=== PATIENT | male | born 1980 | race African-American/Black ===

== ENCOUNTER 2021-02-17 05:55 | Emergency (ER) | payer MEDICAID, OTHER ==
[~2021-02-17] VITALS: Ht 185.4 cm; Wt 90.7 kg
[2021-02-17 06:08] VITALS: BP 166/84
--- NOTE | 2021-02-17 06:13 | NUR ---
AMBULATED TO BED 5
--- NOTE | 2021-02-17 06:32 | NUR ---
40 Y/O MALE CAME TO THE ED C/O CHEST PAIN X 14 DAYS. PT STATES THAT HE HAS 4/10 CHEST PAIN THAT RADIATES TO THE BACK. PT ALSO STATES "FEELING FATIGUE, AND SORENESS". PT IS A&OX4; GCS 15. LUNGS CLEAR BL; HR EVEN AND REGULAR; VSS; PATIENT POSITIONED FOR COMFORT; HOB ELEVATED; BEDRAILS UP X2; BED DOWN. ER MD MADE AWARE OF PT STATUS. NKA PMH: DENIES
[2021-02-17] MEDS ORDERED: KETO10TA2 PO (06:39)
[2021-02-17] MEDS ORDERED: CYCL-711 PO (06:39)
[2021-02-17] MEDS ORDERED: KETOROLAC 30 MG/ML VIAL IM ONE (06:40)
[2021-02-17 07:00] VITALS: BP 166/84
--- NOTE | 2021-02-17 07:01 | NUR ---
Patient discharged with v/s stable. Written and verbal after care instructions given and explained. Patient alert, oriented and verbalized understanding of instructions. Ambulatory with steady gait. All questions addressed prior to discharge. ID band removed. Patient advised to follow up with PMD. Rx of FLXERIL AND KETOROLCA TROMETHAMINE given. Patient educated on indication of medication including possible reaction and side effects. Opportunity to ask questions provided and answered.
== END 2021-02-17 07:01 | disposition home or self-care (01) ==
LOC: MED 05:55
DX: M54.5 Low back pain (principal); R07.9 Chest pain, unspecified
CPT/HCPCS: 96372; 99283; J1885

== ENCOUNTER 2021-03-03 01:56 | Emergency (ER) | payer MEDICAID ==
[~2021-03-03] VITALS: Ht 185.4 cm; Wt 90.7 kg
[~2021-03-03 01:56] MED LIST: CYCL-711 PO; KETO10TA2 PO
[2021-03-03 02:05] VITALS: BP 144/91
--- NOTE | 2021-03-03 02:05 | NUR ---
TO BED AMBULATORY
--- NOTE | 2021-03-03 02:15 | NUR ---
PATIENT PRESENTS TO ED WITH BACK PAIN. HE RATES IT A 6/10 OF NOW. PT. IS A SMOKER AND STATES THAT HE "SMOKES TOO MUCH." SKIN IS PINK/WARM/DRY; AAOX4 WITH EVEN AND STEADY GAIT; HR EVEN AND REGULAR; PT DENIES ANY FEVER, CP, SOB, OR COUGH AT THIS TIME;VSS; PATIENT POSITIONED FOR COMFORT; HOB ELEVATED; BEDRAILS UP X2; BED DOWN. ER MD MADE AWARE OF PT STATUS. PMH: NONE ALLERGIES: NKA
[2021-03-03] MEDS ORDERED: KETOROLAC 30 MG/ML VIAL IM ONE (02:20)
[2021-03-03] MEDS ORDERED: CYCLOBENZAPRINE 10 MG TAB PO ONE (02:20)
[2021-03-03] MEDS ORDERED: DICL1GEL19 TP (02:36)
[2021-03-03] MEDS ORDERED: IBUP-2213 PO (02:36)
[2021-03-03] MEDS ORDERED: CYCL-711 PO (02:36)
[2021-03-03 03:00] VITALS: BP 144/91
--- NOTE | 2021-03-03 03:00 | NUR ---
Patient discharged with v/s stable. Written and verbal after care instructions given and explained. Patient alert, oriented and verbalized understanding of instructions. Ambulatory with steady gait. All questions addressed prior to discharge. ID band removed. Patient advised to follow up with PMD. Rx of FLEXERIL, VOLTAREN, IBUPROFEN given. Patient educated on indication of medication including possible reaction and side effects. Opportunity to ask questions provided and answered.
== END 2021-03-03 03:00 | disposition home or self-care (01) ==
LOC: MED 01:56
DX: S29.012A Strain of muscle and tendon of back wall of thorax, initial encounter (principal); F17.210 Nicotine dependence, cigarettes, uncomplicated; Z79.899 Other long term (current) drug therapy; X58.XXXA Exposure to other specified factors, initial encounter; Y93.89 Activity, other specified; Y92.89 Other specified places as the place of occurrence of the external cause; Y99.8 Other external cause status
CPT/HCPCS: 96372; 99283; J1885

== ENCOUNTER 2021-04-29 18:10 | Emergency (ER) | payer MEDICAID ==
[~2021-04-29] VITALS: Ht 185.4 cm; Wt 86.2 kg
[~2021-04-29 18:10] MED LIST changes: +DICL1GEL19 TP; +IBUP-2213 PO
[2021-04-29 18:23] VITALS: BP 144/78
--- NOTE | 2021-04-29 18:25 | NUR ---
PT TO AWAIT IN LOBBY
--- NOTE | 2021-04-29 18:45 | NUR ---
PT BROUGHT TO BED AT THIS TIME
--- NOTE | 2021-04-29 19:04 | NUR ---
40 YEAR OLD MALE COMPLAINS OF UPPER BACK PAIN X 2 DAYS. PT STATES PAIN IS CHRONIC AND FREQUENTLY HAS FLAREUPS. PT DENIES ANY HEAVY LIFTING OR TRAUMA. PT STATES PAIN ACCOMPANIED BY SOB AND DIFFICULTY AMBULATING. PT AOX4, BREATHING EVEN AND UNLABORED, SKIN WARM AND DRY. BED IN LOWEST POSITION, LOCKED, BED RAIL UPX1. PMH - DENIES ALLERGIES - NKA
--- NOTE | 2021-04-29 19:13 | NUR ---
REPORT GIVEN TO INGRID PEGUERO, TRANSFER OF CARE AT THIS TIME
[2021-04-29] MEDS ORDERED: LIDO5GEL3 TP (19:44)
[2021-04-29] MEDS ORDERED: IBUP-2213 PO (19:44)
[2021-04-29] MEDS ORDERED: DICL20GE TP (19:52)
[2021-04-29 20:00] VITALS: BP 144/78
--- NOTE | 2021-04-29 20:00 | NUR ---
Patient discharged with v/s stable. Written and verbal after care instructions given and explained. Patient alert, oriented and verbalized understanding of instructions. Ambulatory with steady gait. All questions addressed prior to discharge. ID band removed. Patient advised to follow up with PMD. Rx of DICLOFENAC SODIUM, IBUPROFEN, LIDOCAINE HCL given. Patient educated on indication of medication including possible reaction and side effects. Opportunity to ask questions provided and answered.
== END 2021-04-29 20:00 | disposition home or self-care (01) ==
LOC: MED 18:10
DX: M54.9 Dorsalgia, unspecified (principal)
CPT/HCPCS: 99283

== ENCOUNTER 2021-08-13 19:55 | Emergency (ER) | payer MEDICAID ==
[~2021-08-13 19:55] MED LIST changes: +DICL20GE TP; +LIDO5GEL3 TP
--- NOTE | 2021-08-13 20:00 | NUR ---
CALLED TO TRIAGE, NO ANSWER
--- NOTE | 2021-08-13 20:10 | NUR ---
CALLED TO TRIAGE, NO ANSWER
--- NOTE | 2021-08-13 20:25 | NUR ---
CALLED TO TRIAGE, NO ANSWER, LWBS
== END 2021-08-13 20:00 | disposition left against medical advice (07) ==
LOC: MED 19:55
DX: Z53.21 Procedure and treatment not carried out due to patient leaving prior to being seen by health care provider (principal)

== ENCOUNTER 2021-08-22 20:32 | Emergency (ER) | payer MEDICAID ==
[~2021-08-22] VITALS: Ht 185.4 cm; Wt 81.6 kg
[2021-08-22 20:42] VITALS: BP 141/75
--- NOTE | 2021-08-22 22:23 | NUR ---
PT AMBULATED TO BED #1
--- NOTE | 2021-08-22 22:50 | NUR ---
Patient being evaluated by physician at bedside.
[2021-08-22] MEDS ORDERED: CHLO480L2 TP (23:01)
[2021-08-22] MEDS ORDERED: CEPH-588 PO (23:01)
--- NOTE | 2021-08-22 23:05 | NUR ---
DISCHARGE INSTRUCTIONS AND MEDICATION ADMINISTRATION PROVIDED BY DR. GREENWOOD. RX OF KEFLEX AND CHLORHEXIDINE PROVIDED.
== END 2021-08-22 23:05 | disposition home or self-care (01) ==
LOC: MED 20:32
DX: L03.114 Cellulitis of left upper limb (principal); L03.113 Cellulitis of right upper limb; Z90.49 Acquired absence of other specified parts of digestive tract; Z79.899 Other long term (current) drug therapy; Z79.2 Long term (current) use of antibiotics; Z79.1 Long term (current) use of non-steroidal anti-inflammatories (NSAID)
CPT/HCPCS: 99283